=== PATIENT | male | born 1995 | race Caucasian/White ===

== ENCOUNTER 2023-11-21 23:22 | Emergency (ER) | payer SELFPAY ==
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
[2023-11-21 23:37] VITALS: BP 144/97; PULSE 108; TEMP 36.2; O2SAT 96
--- NOTE | 2023-11-22 00:02 | NUR.NOTE ---
Pt placed on care management referral list to see Occupational Health to be seen for bodily fluids exposure to be seen as soon as possible.
[2023-11-22 00:21] LABS: ALT 39 U/L (16-63); AST 20 U/L (15-37); Albumin 4.8 g/dL (3.4-5.0); Alkaline Phosphatase 104 U/L (46-116); Bilirubin, Direct 0.2 mg/dL (0.0-0.2); Bilirubin, Total 0.8 mg/dL (0.2-1.0); Total Protein 8.1 g/dL (6.4-8.2)
[2023-11-23 08:21] LABS: HBs Antibody, Quant <3.1 mIU/mL (See Note); Hepatitis B Surface Ab Negative (See Note)
[2023-11-23 08:39] LABS: Hepatitis B Surface Ag Negative (Negative)
[2023-11-23 08:53] LABS: Hepatitis C Ab w Rflx HCV PCR Negative (Negative)
== END 2023-11-22 00:16 | disposition home or self-care (01) ==
PROVIDERS: Emergency Provider Physician Assistant
DX: Z77.21 Contact with and (suspected) exposure to potentially hazardous body fluids (principal); X58.XXXA Exposure to other specified factors, initial encounter; Y93.F9 Activity, other caregiving; Y92.230 Patient room in hospital as the place of occurrence of the external cause
CPT/HCPCS: 80076; 86706; 86803; 87340; 99283

== ENCOUNTER 2023-12-16 18:47 | Emergency (ER) | payer SELFPAY ==
[2023-12-16 18:52] VITALS: BP 159/95; PULSE 119; RESP 24; TEMP 36.8; O2SAT 96
--- NOTE | 2023-12-16 19:00 | DI.RAD_ITS ---
Exam(s) XR CHEST 2V PA LATERAL EXAM: XR CHEST 2V PA LATERAL CLINICAL HISTORY: cough, shortness of breath. TECHNIQUE: 2D digital imaging was performed. COMPARISON: No exams were available for comparison FINDINGS: 2 views: Heart size is normal. The mediastinum is not widened. Lungs are clear. No infiltrates nor pleural effusions. IMPRESSION: No acute pulmonary findings. DATA REPOSITORY: RADIATION DOSE DELIVERED:
[2023-12-16] MEDS: Normal Saline 1,000 ML 1000 ML IV (19:30)
[2023-12-16] MEDS: Acetaminophen 500 MG TAB 1000 MG PO (19:43)
[2023-12-16 19:44] LABS: COVID-19 PCR Negative (Negative); Influenza A PCR Negative (Negative); Influenza B PCR Negative (Negative); RSV PCR Negative (Negative); Source NASOPHARYNX
[2023-12-16 19:46] LABS: Abs Immature Grans 0.04 10^3/uL (0.0-0.06); Absolute Eosinophil Count 1.27 10^3/uL (0.0-0.7); Absolute Lymphocyte Count 2.38 10^3/uL (1.2-3.4); Basophils % 0.7 %; Eosinophils % 9.2 %; HCT 44.3 % (40.0-50.0); HGB 15.3 g/dL (13.5-17.5); Immature Grans % 0.3 %; Lymphocytes % 17.2 %; MCH 30.3 pg (27.0-33.0); MCHC 34.5 % (32.0-36.0); MCV 88 fL (80-95); MPV 9.2 fL (8.0-11.0); Monocytes % 5.4 %; Neutrophils % 67.2 %; Platelet Count 329 10^3/uL (130-400); RBC 5.05 10^6/uL (4.36-5.78); RDW 12.7 % (11.8-14.1); RDW-SD 40.6 fL; WBC 13.81 10^3/uL (4.4-10.8)
[2023-12-16 19:47] LABS: Absolute Monocyte Count 0.75 10^3/uL (0.1-0.8); Absolute Neutrophil Count 9.28 10^3/uL (1.2-6.7)
[2023-12-16 20:00] LABS: ALT 35 U/L (16-63); AST 13 U/L (15-37); Alkaline Phosphatase 109 U/L (46-116); Anion Gap 10.3 mmol/L (3-11); BUN 7 mg/dL (7-18); Bilirubin, Total 0.28 mg/dL (0.2-1.0); CO2 26.7 mmol/L (21.0-32.0); CREATININE 0.9 mg/dL (0.70-1.30); Calcium 8.8 mg/dL (8.5-10.1); Chloride 105 mmol/L (98-107); Estimated GFR 118.57 (mL/min/1.73m2); Glucose 100 mg/dL (74-106); Potassium 3.5 mmol/L (3.5-5.1); Sodium 142 mmol/L (136-145); Total Protein 7.6 g/dL (6.4-8.2)
[2023-12-16] MEDS: Inhaler, Assist Device 1 EACH MC (20:41)
[2023-12-16] MEDS: Albuterol HFA 8 GM 60 PUFF INH IH (20:41)
[2023-12-16 20:42] VITALS: BP 123/74; PULSE 86; RESP 16; O2SAT 98
[2023-12-16] MEDS: predniSONE 20 MG TAB 40 MG PO (21:08)
[2023-12-16] MEDS: Doxycycline Hyclate 100 MG, 2 CAPS/BTL PO (21:08)
[2023-12-16 21:09] VITALS: BP 124/70; PULSE 85; RESP 16; O2SAT 97
--- NOTE | 2023-12-16 21:39 | DI.VRAD_ITS ---
PROCEDURE INFORMATION: Exam: XR Chest Exam date and time: 12/16/2023 7:50 PM Age: 28 years old Clinical indication: Cough and shortness of breath; Patient HX: SOB and cough TECHNIQUE: Imaging protocol: Radiologic exam of the chest. Views: 2 views. COMPARISON: No relevant prior studies available. FINDINGS: Lungs: No pulmonary consolidation is seen. Pleural spaces: No pleural effusion or pneumothorax is demonstrated. Heart/Mediastinum: The heart appears normal in size. Bones/joints: The visualized bony structures appear intact. IMPRESSION: No active disease is seen in the chest. Dictated and Authenticated by: Warren Kimbrough MD. Ordering:NAEL David MD
--- NOTE | 2023-12-17 10:10 | NUR.NOTE ---
Nursing Note: Received call from pt that prescriptions were not received by [facility] in [place], [place]. DC paperwork reviewed and it appears they were not electronically sent anywhere. Verbal orders called into [facility] pt updated to call Pharmacy in 30 min for an estimated picking tech time.
--- NOTE | 2023-12-17 20:03 | ED.GENADUL_ITS ---
Discharge Plan Disposition Patient Disposition: Home Condition: Stable Discharge Details Clinical Impression: Bronchitis Primary Care Provider: Unknown,Unknown ED Provider: Joann Melo Home Meds and New Rx's Prescriptions: New doxycycline hyclate 100 mg capsule 100 mg PO BID Qty: 20 0RF prednisone 20 mg tablet 40 mg PO DAILY Qty: 8 0RF Continued albuterol 90 mcg/actuation aerosol 90 mcg inhalation .every 4 hr PRN Rx Instructions: inhaled EVERY 4 HR PRN; Discharge Instructions Instructions: Acute bronchitis Additional Instructions: Take the prednisone as prescribed Antibiotics until completed Yogurt daily while on antibiotics Albuterol 2 puffs every 4-6 hours Increased fluids Return earlier should you have increased blood in your sputum, uncontrolled fevers, worsening shortness of breath, or should any concerns arise Stand Alone Forms: Work Release Discharge Data Discharge Date/Time-TO BE ENTERED AT DEPARTURE: 12/16/23 21:10 HPI General Date/Time Provider Initiated Documentation: 12/16/23 18:50 . HPI Narrative: This 28-year-old male presents with report of cough for the past 3 days subje ctive fever and chills this shortness of breath, sore throat and intermittent small hemoptysis. Denies any known sick contacts evidence of discomfort. Denies any stiff neck difficulty swallowing. Denies history of asthma or COPD but does vape daily. Denies any calf pain or swelling, recent flights, surgeries, long drives. Denies any nausea or vomiting. Denies any rashes or lesions. Denies any tick bites. Related Data Home Medications Medication Instructions Recorded Confirmed albuterol 90 mcg/actuation aerosol 90 mcg inhalation .every 4 hr PRN 12/16/23 12/16/23 inhaler doxycycline hyclate 100 mg capsule 100 mg PO BID #20 caps 12/16/23 prednisone 20 mg tablet 40 mg (2 x 20 mg) PO DAILY #8 tabs 12/16/23 Previous Rx's Medication Instructions Recorded doxycycline hyclate 100 mg capsule 100 mg PO BID #20 caps 12/16/23 prednisone 20 mg tablet 40 mg (2 x 20 mg) PO DAILY #8 tabs 12/16/23 General Stated Complaint: RespSymp ANABELLE: 3 Exam Narrative Exam Narrative: Well-appearing 28-year-old gentleman, tachycardic, mildly diaphoretic, no scleral icterus, uvula midline, oropharynx patent, maintaining secretions, scant scattered wheezes, sinus tachycardia, no abdominal tenderness, pallor, alert and oriented x 4, no peripheral edema or calf tenderness, distal sensation intact Course Vital Signs Vital signs: Vital Signs Temperature 36.8 C 12/16/23 18:52 Pulse 119 H 12/16/23 18:52 Respiratory Rate 24 12/16/23 18:52 Blood Pressure 159/95 H 12/16/23 18:52 Pulse Oximetry 96 12/16/23 18:52 Temperature 36.8 C 12/16/23 18:52 Pulse 85 12/16/23 21:09 Respiratory Rate 16 12/16/23 21:09 Respiratory Effort Normal, Non-Labored 12/16/23 19:37 Respiratory Depth Normal 12/16/23 19:37 Blood Pressure 124/70 12/16/23 21:09 Pulse Oximetry 97 12/16/23 21:09 Oxygen Delivery Method Room Air 12/16/23 20:42 Oxygen Flow Rate 0 12/16/23 20:42 Lab/Test Results Lab/Test Results: Laboratory Tests Range/Units 12/16/23 12/16/23 18:53 19:30 WBC (4.4-10.8) 10^3/uL 13.81 H RBC (4.36-5.78) 10^6/uL 5.05 Hgb (13.5-17.5) g/dL 15.3 Hct (40.0-50.0) % 44.3 MCV (80-95) fL 88 MCH (27.0-33.0) pg 30.3 MCHC (32.0-36.0) % 34.5 RDW (11.8-14.1) % 12.7 Plt Count (130-400) 10^3/uL 329 MPV (8.0-11.0) fL 9.2 Immature Gran % % 0.3 Neutrophils % % 67.2 Lymphocytes % % 17.2 Monocytes % % 5.4 Eosinophils % % 9.2 Basophils % % 0.7 Nucleated RBC % (0.0-0.3) % 0.0 Absolute Neutrophils (1.2-6.7) 10^3/uL 9.28 H Absolute Lymphocytes (1.2-3.4) 10^3/uL 2.38 Absolute Monocytes (0.1-0.8) 10^3/uL 0.75 Absolute Eosinophils (0.0-0.7) 10^3/uL 1.27 H Absolute Basophils (0.0-0.2) 10^3/uL 0.10 Sodium (136-145) mmol/L 142 Potassium (3.5-5.1) mmol/L 3.5 Chloride (98-107) mmol/L 105 Carbon Dioxide (21.0-32.0) mmol/L 26.7 Anion Gap (3-11) mmol/L 10.3 BUN (7-18) mg/dL 7 Creatinine (0.70-1.30) mg/dL 0.9 Est GFR (CKD-EPI 2020) (mL/min/1.73m2) 118.57 Glucose (74-106) mg/dL 100 Calcium (8.5-10.1) mg/dL 8.8 Total Bilirubin (0.2-1.0) mg/dL 0.28 AST (15-37) U/L 13 L ALT (16-63) U/L 35 Alkaline Phosphatase (46-116) U/L 109 Total Protein (6.4-8.2) g/dL 7.6 Albumin (3.4-5.0) g/dL 4.0 COVID-19 Source NASOPHARYNX SARS-CoV-2 (PCR) (Negative) Negative Influenza Type A (PCR) (Negative) Negative Influenza Type B (PCR) (Negative) Negative RSV (PCR) (Negative) Negative Medical Decision Making Alert and oriented 28-year-old male, no significant distress, chest x-ray without obvious infiltrate tachycardia and leukocytosis. Will initiate antibiotics. Doxycycline to treat for bronchitis versus pneumonia in the presence of a tobacco user with leukocytosis. Given albuterol inha, prednisone, doxycycline. Follow-up in 48 hours recommended. Encourage smoking cessation. Low clinical suspicion for PE, tachycardia resolved with fluids and no history of coagulopathy or risk factors aside from tachycardia but no hypoxia only mild tachypnea presents with respiratory symptoms.. COVID, flu, RSV negative. Quality:[facility] Health Related Social Needs: No Data to Display PFSH All Active Problems (Updated 12/16/23 @ 20:48 by KOBI Agosto) Bronchitis (Acute) History of exposure to blood or body fluid (Acute) Social History Smoking/Tobacco Use Status: Current every day Tobacco Type: e-cigarettes Smoking risk assessment performed?: Yes Alcohol Intake: current Alcohol Intake frequency: a few times a month Alcohol type: beer and hard liquor Drug use: Never Substance use type: does not use Housing: house Do you feel safe at home: Yes Do you feel safe in your relationship?: Yes
== END 2023-12-16 21:10 | disposition home or self-care (01) ==
PROVIDERS: Emergency Provider Physician Assistant
DX: J40 Bronchitis, not specified as acute or chronic (principal)
CPT/HCPCS: 36415; 80053; 87637; 96360; 99284; 71046; 85025; J7512

== ENCOUNTER 2024-04-09 22:52 | Emergency (ER) | payer SELFPAY ==
[2024-04-09] VITALS (50 sets, daily range): BP systolic 132–141; BP diastolic 68–89; PULSE 65–82; RESP 9–26; TEMP 36.7; O2SAT 92–98
--- NOTE | 2024-04-09 22:45 | RT.EKG_ITS ---
APPROVED REPORT Exam: Resting ECG Reason for Exam: chest heaviness Patient Location: E HR:74 bpm ECG Measurements Heart Rate 74 AXIS NE 163 P 21 QRSd 86 QRS -9 QT 367 T 1 QTc 406 Conclusion Sinus rhythm...normal P axis, V-rate 60- [address] segment or T wave abnormalities to suggest occlusive MN
--- NOTE | 2024-04-09 23:15 | DI.RAD_ITS ---
Exam(s) XR CHEST 2V PA LATERAL EXAM: XR CHEST 2V PA LATERAL CLINICAL HISTORY: chest pain. TECHNIQUE: 2D digital imaging was performed. COMPARISON: CR,XR XR CHEST 2V PA LATERAL from 12/16/2023 FINDINGS: 2 views: Heart size is normal. The mediastinum is not widened. Lungs are clear. No infiltrates nor pleural effusions. IMPRESSION: No acute pulmonary findings. DATA REPOSITORY: RADIATION DOSE DELIVERED:
--- NOTE | 2024-04-09 23:15 | DI.CT_ITS ---
Exam(s) CT ABDOMEN PELVIS W EXAM: CT ABDOMEN PELVIS W CLINICAL HISTORY: TTP diffusely, worst RLQ (prior appendectomy). TECHNIQUE: Imaging Protocol: Axial computed tomography images with coronal and sagittal reformatted images were created and reviewed CONTRAST MATERIAL: Intravenous: Omnipaque-350 100cc Oral: None COMPARISON: No exams were available for comparison FINDINGS: VISUALIZED LUNG BASES: No nodules nor pleural effusions evident. ABDOMEN: There is no ascites. LIVER: There are no focal hepatic lesions evident. No dilated intrahepatic ducts. GALLBLADDER/BILIARY: No obvious gallbladder pathology. CBD is not dilated. PANCREAS: No evidence of pancreatic mass nor dilatation of the pancreatic duct. SPLEEN: Spleen is not enlarged. No obvious intrasplenic lesions. Splenic and portal veins are paten t. ADRENALS: There are no significant adrenal masses. KIDNEYS:No cysts evident. No solid renal masses. No calculi nor hydronephrosis.. ABDOMINAL AORTA: Abdominal aorta is not enlarged. LYMPH NODES:There is no retroperitoneal nor paraaortic adenopathy. ABDOMINAL WALL: No evidence of significant anterior abdominal wall hernia. There is a small fat only containing left inguinal hernia. GI: There is no evidence of bowel obstruction, free air, nor abscess. PELVIS: GI: Appendix is surgically absent.No significant sigmoid diverticular disease. LYMPH NODES: There is no intrapelvic nor inguinal adenopathy. REPRODUCTIVE: Prostate size normal. Seminal vesicles unremarkable. URINARY BLADDER: No calculi nor obvious masses evident OSSEOUS: No fractures and no significant osseous lesions. IMPRESSION: 1. There is a small fat only containing left inguinal hernia. Does not contain bowel loops. No britany l obstruction. 2. No significant acute findings in the abdomen and pelvis. RADIATION DOSE DELIVERED: 719.97mGy.cm Total DLP DATA REPOSITORY: All CT scans at this facility are submitted to the National Radiology Data Registry (NRDR) Dose Index Registry (DIR) with the [employer] (A[employer]). RADIATION OPTIMIZATION: All CT scans at this facility use at least one of these dose optimization te chniques: automated exposure control; mA and/or kV adjustment per patient size (includes targeted exa ms where dose is matched to clinical indication); or iterative reconstruction.
[2024-04-09 23:35] LABS: Abs Immature Grans 0.02 10^3/uL (0.0-0.06); Absolute Basophil Count 0.06 10^3/uL (0.0-0.2); Absolute Eosinophil Count 0.53 10^3/uL (0.0-0.7); Absolute Lymphocyte Count 2.97 10^3/uL (1.2-3.4); Absolute Monocyte Count 0.43 10^3/uL (0.1-0.8); Absolute Neutrophil Count 5.48 10^3/uL (1.2-6.7); Basophils % 0.6 %; Eosinophils % 5.6 %; HCT 43.7 % (40.0-50.0); HGB 15.1 g/dL (13.5-17.5); Immature Grans % 0.2 %; Lymphocytes % 31.3 %; MCH 30.6 pg (27.0-33.0); MCHC 34.6 % (32.0-36.0); MCV 89 fL (80-95); MPV 8.9 fL (8.0-11.0); Monocytes % 4.5 %; Neutrophils % 57.8 %; Platelet Count 320 10^3/uL (130-400); RBC 4.94 10^6/uL (4.36-5.78); RDW 12.4 % (11.8-14.1); RDW-SD 40.3 fL; WBC 9.49 10^3/uL (4.4-10.8)
[2024-04-09] MEDS: Acetaminophen 500 MG TAB 1000 MG PO (23:39)
[2024-04-09] MEDS: Ondansetron 4 MG/2 ML VIAL IVP (23:40)
--- NOTE | 2024-04-09 23:47 | ED.GENADUL_ITS ---
Discharge Plan Disposition Patient Disposition: Home Condition: Good Discharge Details Clinical Impression: Vomiting, Chest pain Primary Care Provider: Unknown,Unknown ED Provider: Norma Sanchez Home Meds and New Rx's Prescriptions: New ondansetron 4 mg tablet,disintegrating 4 mg PO Q8H PRNQty: 10 0RF Continued albuterol 90 mcg/actuation aerosol 90 mcg inhalation .every 4 hr PRN Rx Instructions: inhaled EVERY 4 HR PRN; Discharge Instructions Instructions: Chest Pain, Adult ED, Nausea and vomiting in adults Additional Instructions: Ondansetron up to every 8 hours as needed for vomiting. Call your primary care doctor today to schedule an appointment for within the next 48 hours to follow up on your visit here. Return to the emergency department for new or worsening symptoms including inability to keep down fluids, new/different/worse chest or abdominal pain, difficultly breathing, feeling like you are going to pass out, or if you have any other concerns. Stand Alone Forms: Work Release HPI General Mode of arrival: ambulatory . Date/Time Provider Initiated Documentation: 04/09/24 22:55 . Limitations to Documentation: no limitations . Information obtained by: patient . HPI Narrative: 28yo M with hx asthma presenting with three days of N/V and 3 hours of dull substernal chest pain. Has not been able to keep much down over the past three days. Nonbloody nonbilious. Associated nonbloody diarrhea, 2/day. Has felt lightheaded today. No syncope. No shortness of breath. No LE edema. No prior cardiac history, no family hx of early cardiac disease or sudden unexpected . No recent surgery, immbolization, or travel; no hx of blood clots. Pain is dull, non radiating, mild, with no alleviating or aggravating factors. Also has mild diffuse abdominal pain. No dysuria, hematuria, or testicular pain. Otherwise in his usual state of health with no fevers, rash, cough, numbness, weakness, or other concerns. Related Data Home Medications ?Medication ?Instructions ?Recorded ?Confirmed albuterol 90 mcg/actuation aerosol 90 mcg inhalation .every 4 hr PRN 12/16/23 04/09/24 inhaler ondansetron 4 mg disintegrating 4 mg PO Q8H PRN #10 tabs 04/10/24 tablet Previous Rx's ?Medication ?Instructions ?Recorded ondansetron 4 mg disintegrating 4 mg PO Q8H PRN #10 tabs 04/10/24 tablet Allergies Allergy/AdvReac Type Severity Reaction Status Date / Time peanut Allergy Unknown Verified 04/09/24 22:56 General Stated Complaint: Chest Pain ANABELLE: 3 Review of Systems Narrative: see HPI Exam Narrative Exam Narrative: General: Alert, well appearing, well nourished, in no acute distress. Head: Normocephalic, atraumatic Neck: Trachea midline, ?Neck supple. ENT: ?MMM.? No oropharygeal lesions or exudate. Cardiac: ?RRR, no murmurs appreciated Resp: No respiratory distress. CTAB. Abd: ?Soft, non-distended, diffusely mildly TTP worst in RLQ with no rebound or guarding. : ?No suprapubic tenderness. Extremities: ?No deformities.? No peripheral edema. Neurologic: GCS 15. ? Moves all extremities freely against gravity Course Vital Signs Vital signs: Vital Signs Temperature 36.7 C 04/09/24 22:57 Pulse 78 04/09/24 22:57 Respiratory Rate 16 04/09/24 22:57 Blood Pressure 141/89 H 04/09/24 22:57 Pulse Oximetry 96 04/09/24 22:57 Temperature 36.7 C 04/09/24 22:57 Temperature Source Temporal Artery Scan 04/09/24 22:57 Pulse 78 04/09/24 22:57 Respiratory Rate 16 04/09/24 23:00 Respiratory Effort Normal 04/09/24 23:00 Respiratory Depth Normal 04/09/24 23:00 Blood Pressure 141/89 H 04/09/24 22:57 Blood Pressure Position Sitting 04/09/24 22:57 Pulse Oximetry 96 04/09/24 22:57 Oxygen Delivery Method Room Air 04/09/24 22:57 Oxygen Flow Rate 0 04/09/24 22:57 End Tidal Co2 0 04/09/24 22:57 Lab/Test Results Lab/Test Results: Laboratory Tests Range/Units 04/09/24 23:30 WBC (4.4-10.8) 10^3/uL 9.49 RBC (4.36-5.78) 10^6/uL 4.94 Hgb (13.5-17.5) g/dL 15.1 Hct (40.0-50.0) % 43.7 MCV (80-95) fL 89 MCH (27.0-33.0) pg 30.6 MCHC (32.0-36.0) % 34.6 RDW (11.8-14.1) % 12.4 Plt Count (130-400) 10^3/uL 320 MPV (8.0-11.0) fL 8.9 Immature Gran % % 0.2 Neutrophils % % 57.8 Lymphocytes % % 31.3 Monocytes % % 4.5 Eosinophils % % 5.6 Basophils % % 0.6 Nucleated RBC % (0.0-0.3) % 0.0 Absolute Neutrophils (1.2-6.7) 10^3/uL 5.48 Absolute Lymphocytes (1.2-3.4) 10^3/uL 2.97 Absolute Monocytes (0.1-0.8) 10^3/uL 0.43 Absolute Eosinophils (0.0-0.7) 10^3/uL 0.53 Absolute Basophils (0.0-0.2) 10^3/uL 0.06 Medical Decision Making 28yo M with hx asthma presenting with three days of N/V and 3 hours of dull substernal chest pain. Vital signs reassuring on arrival, mild diffuse abd tenderness on exam. EKG NSR, appropriate intervals, no ST segment or T wave abnormalities to suggest occlusive DC. May be gastroenteritits +/- reflux; will treat initially with zofran, GI cocktail, and evalaute for life threatening causes. PERC negative; would not persue pulmonary embolism with dimer/CT imaging. Labs reviewed as below, CBC reassuring with no leukocytosis or anemia, CMP with no actionable abnormalities, initial troponin normal, BNP normal, lipase normal (unlikely pancreatitis). CXR independently reviewed; no focal pneumonia or pneumothorax on my view, radiology read below. CT independently reviewed; no bowel obstruction or free fluid on my view, radiology read below. Repeat troponin unchanged. HEART score 0, low risk; would not continue to trend troponin or admit for observation. On reassessment he reports nausea has improved. PO challenged and tolerated well. Patient requesting discharge home which is reasonable. Discharged to followup with PCP with short course of zofran; discharge instructions and return precautions were reviewed with patient who verbalized understanding. All questions were answered and he is in full agreement with the plan. Imaging Data Radiologic Study: Imaging: CT Scan Radiologist's impression: IMPRESSION: No acute intra-abdominal process. Radiologic Study #2: Imaging: X-Ray Radiologist's impression: IMPRESSION: No acute intra-abdominal process. Lab Data Lab results reviewed: Yes I reviewed the patient's lab results. Labs: Laboratory Tests Range/Units 04/09/24 04/10/24 23:30 00:45 WBC (4.4-10.8) 10^3/uL 9.49 RBC (4.36-5.78) 10^6/uL 4.94 Hgb (13.5-17.5) g/dL 15.1 Hct (40.0-50.0) % 43.7 MCV (80-95) fL 89 MCH (27.0-33.0) pg 30.6 MCHC (32.0-36.0) % 34.6 RDW (11.8-14.1) % 12.4 Plt Count (130-400) 10^3/uL 320 MPV (8.0-11.0) fL 8.9 Immature Gran % % 0.2 Neutrophils % % 57.8 Lymphocytes % % 31.3 Monocytes % % 4.5 Eosinophils % % 5.6 Basophils % % 0.6 Nucleated RBC % (0.0-0.3) % 0.0 Absolute Neutrophils (1.2-6.7) 10^3/uL 5.48 Absolute Lymphocytes (1.2-3.4) 10^3/uL 2.97 Absolute Monocytes (0.1-0.8) 10^3/uL 0.43 Absolute Eosinophils (0.0-0.7) 10^3/uL 0.53 Absolute Basophils (0.0-0.2) 10^3/uL 0.06 Sodium (136-145) mmol/L 144 Potassium (3.5-5.1) mmol/L 4.0 Chloride (98-107) mmol/L 108 H Carbon Dioxide (21.0-32.0) mmol/L 28.4 Anion Gap (3-11) mmol/L 7.6 BUN (7-18) mg/dL 11 Creatinine (0.70-1.30) mg/dL 0.9 Est GFR (CKD-EPI 2020) (mL/min/1.73m2) 118.57 Glucose (74-106) mg/dL 112 H Calcium (8.5-10.1) mg/dL 8.8 Total Bilirubin (0.2-1.0) mg/dL 0.36 AST (15-37) U/L 16 ALT (16-63) U/L 36 Alkaline Phosphatase (46-116) U/L 97 Troponin I (<or=76) ng/L 5 5 NT-Pro-B Natriuret Pep (<300) pg/mL 13 Total Protein (6.4-8.2) g/dL 7.1 Albumin (3.4-5.0) g/dL 3.8 Lipase (16-77) U/L 34 Quality:SDOH Health Related Social Needs: No Data to Display PFSH All Active Problems (Updated 04/10/24 @ 01:36 by Norma Sanchez MD) Chest pain (Acute) Vomiting (Acute) Social History Smoking/Tobacco Use Status: Current every day Tobacco Type: e-cigarettes Smoking risk assessment performed?: Yes Alcohol Intake: current Alcohol Intake frequency: a few times a month Alcohol type: beer and hard liquor Drug use: Never Substance use type: does not use Housing: house Do you feel safe at home: Yes Do you feel safe in your relationship?: Yes
[2024-04-09] MEDS: Normal Saline - Diluent 50 ML VIAL IJ (23:57)
[2024-04-09] MEDS: Omnipaque 350 MG/ML 100 ML BTL IJ (23:57)
[2024-04-09 23:58] LABS: ALT 36 U/L (16-63); AST 16 U/L (15-37); Albumin 3.8 g/dL (3.4-5.0); Alkaline Phosphatase 97 U/L (46-116); Anion Gap 7.6 mmol/L (3-11); BUN 11 mg/dL (7-18); Bilirubin, Total 0.36 mg/dL (0.2-1.0); CO2 28.4 mmol/L (21.0-32.0); CREATININE 0.9 mg/dL (0.70-1.30); Calcium 8.8 mg/dL (8.5-10.1); Chloride 108 mmol/L (98-107); Estimated GFR 118.57 (mL/min/1.73m2); Glucose 112 mg/dL (74-106); Lipase 34 U/L (16-77); NT-proBNP 13 pg/mL (<300); Sodium 144 mmol/L (136-145); Total Protein 7.1 g/dL (6.4-8.2); Troponin I 5 ng/L (<or=76)
[2024-04-10 01:07] LABS: Troponin I 5 ng/L (<or=76)
--- NOTE | 2024-04-10 01:15 | DI.VRAD_ITS ---
PROCEDURE INFORMATION: Exam: CT Abdomen And Pelvis With Contrast Exam date and time: 04/09/2024 11:55 PM Age: 28 years old Clinical indication: Pain; Other: Ttp diffusely, worst rlq (prior appendectomy); Additional info: Ttp diffusely, worst rlq (prior appendectomy) TECHNIQUE: Imaging protocol: Computed tomography of the abdomen and pelvis with contrast. Contrast material: OMNI 350; Contrast volume: 100 ml; Contrast route: INTRAVENOUS (IV); COMPARISON: CR XR CHEST 2V PA LATERAL 04/09/2024 11:53 PM FINDINGS: Liver: Normal. No mass. Gallbladder and biliary ducts: Normal. No calcified stones. No ductal dilation. Pancreas: Normal. No ductal dilation. Spleen: Normal. No splenomegaly. Adrenal glands: Normal. No mass. Kidneys and ureters: Normal. No hydronephrosis. Stomach and bowel: Unremarkable. No obstruction. No mucosal thickening. Appendix: Post appendectomy. Intraperitoneal space: Unremarkable. No free air. No significant fluid collection. Vasculature: Unremarkable. No abdominal aortic aneurysm. Lymph nodes: Unremarkable. No enlarged lymph nodes. Urinary bladder: Unremarkable as visualized. Reproductive: Unremarkable as visualized. Bones/joints: Unremarkable. No acute fracture. Soft tissues: Fat containing left inguinal hernia. IMPRESSION: No acute intra-abdominal process. Dictated and Authenticated by: Robin Justice MD. Ordering:JAMAL Green MD
--- NOTE | 2024-04-10 01:15 | DI.VRAD_ITS ---
PROCEDURE INFORMATION: Exam: XR Chest Exam date and time: 04/09/2024 11:53 PM Age: 28 years old Clinical indication: Chest wall pain TECHNIQUE: Imaging protocol: Radiologic exam of the chest. Views: 2 views. COMPARISON: CR XR CHEST 2V PA LATERAL 12/16/2023 7:50 PM FINDINGS: Lungs: Unremarkable. No consolidation. Pleural spaces: Unremarkable. No pleural effusion. No pneumothorax. Heart/Mediastinum: Unremarkable. No cardiomegaly. Bones/joints: Unremarkable. IMPRESSION: No acute cardiopulmonary process. Dictated and Authenticated by: Robin Justice MD. Ordering:JAMAL Green MD
== END 2024-04-10 01:46 | disposition home or self-care (01) ==
LOC: ER 04-10 01:53
PROVIDERS: Emergency Provider Student in an Organized Health Care Education/Training Program
DX: R11.2 Nausea with vomiting, unspecified (principal); R07.9 Chest pain, unspecified; F17.290 Nicotine dependence, other tobacco product, uncomplicated
CPT/HCPCS: 80053; 83690; 93005; 96374; 99285; 71046; 74177; 83880; 84484; 85025; 93010; 99284; J2405; J3490

== ENCOUNTER 2024-04-17 01:58 | Emergency (ER) | payer OTHER, SELFPAY ==
--- NOTE | 2024-04-17 02:00 | DI.RAD_ITS ---
Exam(s) XR SHOULDER RT COMPLETE 2+V EXAM: XR SHOULDER RT COMPLETE 2+V CLINICAL HISTORY: trauma/injury. TECHNIQUE: 2D digital imaging was performed. Five views. COMPARISON: No exams were available for comparison FINDINGS: BONES: No acute fracture is present. No bony destructive lesion is seen. JOINTS: No dislocation present. SOFT TISSUE: Normal. IMPRESSION: Unremarkable radiographs of the right shoulder. DATA REPOSITORY: RADIATION DOSE DELIVERED:
[2024-04-17 02:01] VITALS: BP 162/83; PULSE 109; RESP 19; TEMP 37.1; O2SAT 98
--- NOTE | 2024-04-17 02:10 | W.ED.GENAD ---
Discharge Plan Disposition Patient Disposition: Home Condition: Good Discharge Details Clinical Impression: Right shoulder injury Primary Care Provider: Unknown,Unknown ED Provider: Joe Sandhu and New Rx's Prescriptions: No Action albuterol 90 mcg/actuation aerosol 90 mcg inhalation .every 4 hr PRN Rx Instructions: inhaled EVERY 4 HR PRN; Discharge Instructions Instructions: Shoulder Sprain ED Additional Instructions: You were seen after an injury to your right shoulder. This potentially may be related to rotator cuff. X-rays show no evidence of fracture or dislocation. You will need to follow-up with occupational health. Ice on and off over the next few days. Ibuprofen or acetaminophen as needed for pain. Limit use of right upper extremity until follow-up with occupational health. Return to ED for any numbness or weakness of the arm, shortness of breath, other concerns. Stand Alone Forms: Work Release Referrals: Occupational Medicine [Provider Group] [facility] General Mode of arrival: ambulatory. Date/Time Provider Initiated Documentation: 04/17/24 02:00. Limitations to Documentation: no limitations. Information obtained by: patient and RN notes reviewed. 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 He is not sure exactly what happened but is having right shoulder pain, difficulty raising his arm. Denies any chest pain or shortness of breath. Denies any left arm or bilateral leg injury. Related Data Home Medications ?Medication ?Instructions ?Recorded ?Confirmed albuterol 90 mcg/actuation aerosol 90 mcg inhalation .every 4 hr PRN 12/16/23 04/17/24 inhaler Allergies Allergy/AdvReac Type Severity Reaction Status Date / Time peanut Allergy Unknown Verified 04/17/24 02:01 General Stated Complaint: Orthopedic ANABELLE: 3 Review of Systems Narrative: Per HPI Exam Narrative Exam Narrative: Const: WDWN male in NAD. VS per triage. HEENT: NC/AT. Normal facial exam. Neck: Supple. Trachea midline. Lungs: Normal respiratory effort. Cor: RRR. Good radial pulses. Neuro: A+O x 3. Normal speech, mentation, gait. Cranial nerves II - XII grossly intact. No gross motor or sensory deficit. Ext: Decreased active and passive range of motion at right shoulder due to pain. Specifically, difficult to raise his arm up. He is neurovascularly intact distally. Left upper extremity normal. Course Vital Signs Vital signs: Vital Signs Temperature 98.8 F 04/17/24 02:01 Pulse 109 H 04/17/24 02:01 Respiratory Rate 19 04/17/24 02:01 Blood Pressure 162/83 H 04/17/24 02:01 Pulse Oximetry 98 04/17/24 02:01 Temperature 98.8 F 04/17/24 02:01 Temperature Source Temporal Artery Scan 04/17/24 02:01 Pulse 109 H 04/17/24 02:01 Respiratory Rate 19 04/17/24 02:01 Respiratory Effort Normal, Non-Labored 04/17/24 02:04 Blood Pressure 162/83 H 04/17/24 02:01 Blood Pressure Position Sitting 04/17/24 02:01 Pulse Oximetry 98 04/17/24 02:01 Oxygen Delivery Method Room Air 04/17/24 02:01 Oxygen Flow Rate 0 04/17/24 02:01 Pain Level 6 04/17/24 02:01 Medical Decision Making 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 Likely muscular and potentially rotator cuff in nature. He is neurovascularly intact distally. Will obtain x-ray and provide ibuprofen, ice. Right shoulder x-ray negative for fracture/dislocation. Patient will need follow-up with occupational health. Limited use of right arm until follow-up given concern for possible rotator cuff injury. Ice on and off. Ibuprofen or acetaminophen for pain. Return precautions provided. Imaging Data Radiologic Study: Attestation: I personally reviewed and interpreted this imaging study as follows: Imaging: X-Ray My impression: Right shoulder x-ray with no acute fracture or dislocation. PFSH All Active Problems (Updated 04/17/24 @ 02:41 by Joe Sandhu MD) Right shoulder injury (Acute) Medical History No significant past medical history Surgical History No significant past surgical history Social History Smoking/Tobacco Use Status: Current every day Tobacco Type: e-cigarettes Smoking risk assessment performed?: Yes Alcohol Intake: current Alcohol Intake frequency: a few times a month Alcohol type: beer and hard liquor Drug use: Never Substance use type: does not use Housing: house Do you feel safe at home: Yes Do you feel safe in your relationship?: Yes
[2024-04-17] MEDS: Ibuprofen 600 MG TAB PO (02:19)
--- NOTE | 2024-04-17 02:52 | DI.VRAD_ITS ---
PROCEDURE INFORMATION: Exam: XR Right Shoulder Exam date and time: 04/17/2024 2:30 AM Age: 28 years old Clinical indication: Injury or trauma; Other: Trauma/injury; Blunt trauma (contusions or hematomas); Shoulder; Right TECHNIQUE: Imaging protocol: Radiologic exam of the right shoulder. Views: 2 or more views. COMPARISON: CR XR CHEST 2V PA LATERAL 04/09/2024 11:53 PM FINDINGS: Bones/joints: Normal. Soft tissues: Normal. IMPRESSION: Normal right shoulder. Dictated and Authenticated by: Timo Martinez MD. Ordering:ADRIANNE Diaz MD
== END 2024-04-17 03:01 | disposition home or self-care (01) ==
PROVIDERS: Emergency Provider Emergency Medicine
DX: M25.511 Pain in right shoulder (principal); X58.XXXA Exposure to other specified factors, initial encounter
CPT/HCPCS: 99283; 73030

== ENCOUNTER 2024-06-06 00:25 | Outpatient (CLI) | payer OTHER, SELFPAY ==
--- OUTSIDE RECORDS SUMMARY | 2024-06-06 00:27 | XMS_ITS | Encounter Summary ---
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 Name Role Phone Unavailable Primary Care Provider Unavailabl e Encounter Details Date Type Department Care Team (Late st Contact Info) Description 11/22/2023 Lab Requisition [facility] Pathology & Laboratory Medicine - [address] [address] Outr Resulting Lab, Provider Social History Tobacco Use Types Packs/Day Years Used Date Smoking Tobacco: Never Assessed Sex and Gender Information Value Date Recorded Sex Assigned at Not on file Legal Sex Male 1:33 EDT Gender Identity Not on file Sexual Orientation Not on file documented as of this encounter Plan of Treatment Not on file documented as of this encounter Procedures Procedure Name Priority Date/Time Associated Diagnosis Comments HOLD SST Today 11/21/2023 23:56 EDT HEPATITIS C AB W REFLEX TO HCV RNA BY PCR Today 11/21/2023 23:56 EDT HEPATITIS B SURFACE ANTIBODY Today 11/21/2023 23:56 EDT HEPATITIS B SURFACE ANTIGEN Today 11/21/2023 23:56 EDT documented in this encounter Results * HOLD SST (11/21/2023 23:56 EDT) Hold Hold 11/22/2023 18:01 EDT [facility] Blood VENOUS BLOOD / Unknown 11/21/2023 23:56 EDT 11/22/2023 16:55 EDT us Provider Outr Resulting Lab LAB INFO SERVICE AND SUPPORT & PHONE RESULT Final Result [facility] [address] [place] [address] * HEPATITIS B SURFACE ANTIBODY (11/21/2023 23:56 EDT) Pathologist [facility] Hep B Surface Ab, Quantitative <3.1 See Note mIU/mL 11/23/2023 8:17 EDT [facility] Comment: Reference Range for Hep B Surface Ab, Quant: Positive: >= 10.0 mIU/mL Negative: ??< 10.0 mIU/mL Patient is presumed to not be immune to infection with Hepatitis B Virus. Hep B Surface Ab, Qualitative Negative See Note 11/23/2023 8:17 EDT [facility] Comment: Reference Range for Hep B Surface Ab, Qual: Unvaccinated: ??Negative Vaccinated: ??Positive Blood VENOUS BLOOD / Unknown 11/21/2023 23:56 EDT 11/22/2023 16:54 EDT us Provider Outr Resulting Lab CHEMISTRY & BLOOD GA S ORDERABLES Final Result Performing Organization Address [facility]/ZIP Co de Phone Number [facility] [address] [place] [id number] * HEPATITIS B SURFACE ANTIGEN (11/21/2023 23:56 EDT) [facility] Hep B Surface Ag Negative Negative 11/23/2023 8:34 EDT [facility] Blood VENOUS BLOOD / Unknown 11/21/2023 23:56 EDT 11/22/2023 16:54 EDT us Provider Outr Resulting Lab CHEMISTRY & BLOOD GA S ORDERABLES Final Result Performing Organization Address City/[facility]/ZIP Co de Phone Number [facility] [address] [place] [address] * HEPATITIS C AB W REFLEX TO HCV RNA BY PCR (11/21/2023 23:56 EDT) [facility] Hep C Antibody Negative Negative 11/23/2023 8:47 EDT [facility] Blood VENOUS BLOOD / Unknown 11/21/2023 23:56 EDT 11/22/2023 16:54 EDT us Provider Outr Resulting Lab CHEMISTRY & BLOOD GA S ORDERABLES Final Result [facility] [address] [place] [address] documented in this encounter Visit Diagnoses Not on filedocumented in this encounter
--- OUTSIDE RECORDS SUMMARY | 2024-06-06 00:27 | XMS_ITS | Referral Summary ---
Author Organization [facility] Address [address] [place] [address] Care Team Providers Care [employer] Membership Advisors Name Role Phone Unavailable Primary Care Provider Unavailabl e Social History Tobacco Use Types Packs/Day Years Used Date Smoking Tobacco: Never Assessed Sex and Gender Information Value Date Recorded Sex Assigned at Not on file Legal Sex Male 1:33 EDT Gender Identity Not on file Sexual Orientation Not on file Plan of Treatment Not on file Procedures Procedure Name Priority Date/Time Associated Diagnosis Comments HEPATITIS C AB W REFLEX TO HCV RNA BY PCR Today 11/21/2023 23:56 EDT from Last 3 Months or Most Recently Relevant to Health Maintenance Results * HEPATITIS C AB W REFLEX TO HCV RNA BY PCR (11/21/2023 23:56 EDT) Hep C Antibody Negative Negative 11/23/2023 8:47 EDT [facility] Blood VENOUS BLOOD / Unknown 11/21/2023 23:56 EDT 11/22/2023 16:54 EDT us Provider Outr Resulting Lab CHEMISTRY & BLOOD GA S ORDERABLES Final Result [facility] [address] [place] [id number] from Last 3 Months or Most Recently Relevant to Health Maintenance
--- OUTSIDE RECORDS SUMMARY | 2024-06-06 00:27 | XMS_ITS | Clinical Summary ---
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 Name Role Phone Unavailable Primary Care Provider Unavailabl e Social History Tobacco Use Types Packs/Day Years Used Date Smoking Tobacco: Never Assessed Sex and Gender Information Value Date Recorded Sex Assigned at Not on file Legal Sex Male 1:33 EDT Gender Identity Not on file Sexual Orientation Not on file Plan of Treatment Health Maintenance Due Date Last Done Comments Hepatitis B Vaccine (1 of 3 - 19+ 3-dose series) 05/06 COVID-19 Vaccine ( season) 2024 Hepatitis C Screen Completed 11/21/2023 Procedures Procedure Name Priority Date/Time Associated Diagnosis Comments HEPATITIS C AB W REFLEX TO HCV RNA BY PCR Today 11/21/2023 23:56 EDT from Last 3 Months or Most Recently Relevant to Health Maintenance Results * HEPATITIS C AB W REFLEX TO HCV RNA BY PCR (11/21/2023 23:56 EDT) Hep C Antibody Negative Negative 11/23/2023 8:47 EDT [facility] Blood VENOUS BLOOD / Unknown 11/21/2023 23:56 EDT 11/22/2023 16:54 EDT us Provider Outr Resulting Lab CHEMISTRY & BLOOD GA S ORDERABLES Final Result [facility] [address] [place] [address] from Last 3 Months or Most Recently Relevant to Health Maintenance
--- NOTE | 2024-06-06 07:45 | DI.MRI_ITS ---
Exam(s) MR UPPER JOINT RT WO EXAM: MR UPPER JOINT RT WO CLINICAL HISTORY: Persistent pain, poor range of motion,ROTATOR CUFF IMPINGEMENT RT SHOULDER, TECHNIQUE: Multiplanar multisequence MRI of the shoulder was performed. COMPARISON: CR,XR XR SHOULDER RT COMPLETE 2+V from 04/17/2024 FINDINGS: MARROW:There is no evidence of fracture, Hill-Sachs deformity, nor ominous osseous lesions. GLENOHUMERAL JOINT: No joint effusion nor obvious loose intra-articular bodies. No chondral defects. No osteophytes. No degenerative subarticular cysts. ROTATOR CUFF MECHANISM: AC JOINT/ACROMIUM: There are minimal degenerative changes in the AC joint. No prominent osteophytes at this level. No enthesophytes evident at the level of the cortical clavicular ligament.. There is no evidence of os acromiale. Supraspinatus: There is very mild signal abnormality in the supraspinatus tendon.. There is a sliver of fluid in the subdeltoid bursa. There is no visible significant tear in the supraspinatus. There is also no muscle atrophy. Infraspinatus: There is a tiny focus of tendon insertional signal abnormality in the infraspinatus te ndon and there is a tiny subarticular cyst in the posterolateral humeral head at this level which mela sures 2 mm. This is tiny focus of tendon signal abnormality evident in all 3 planes and may represen t a tiny articular side partial thickness tear. It only measures approximately 1 mm. There is no mu scle atrophy. Teres Minor: Intact. No evidence of tear nor muscle atrophy. Subscapularis/anterior cuff: Intact. No abnormal signal at the level of the multipennate insertional fibers. No significant tear nor atrophy. BICEPS TENDON: Exhibits normal position within the intertubercular groove. No evidence of tear. LABRUM: There is no signal abnormality in superior labrum posterior to the biceps insertion site. Th e posterior labrum is also intact. There is no obvious tear in the anterior labrum nor obvious infer ior labral tear. No evidence of paralabral cysts. No evidence of avulsion of the anterior inferior labral ligamentous/capsular complex. No evidence of bony Bankart lesion. QUADRILATERAL SPACE: No evidence of mass in the region of the axillary nerve and dorsal circumflex hu meral vessels. Visualized triceps muscle at this level appears unremarkable. IMPRESSION: 1. There is a small tiny 1 mm focus of signal abnormality seen in all 3 planes within the insertional aspect of the infraspinatus which either represents a small focus tendinitis or tiny articular side partial thickness tear. This does not have the appearance of a full-thickness tear. There is a tiny degenerative subarticular cysts in the posterolateral humeral head immediately subjacent to this sma ll infraspinatus tendon finding. 2. Minimal tendon findings in the supraspinatus. No true tear. No retraction. No atrophy. 3. No evidence of tear in the anterior cuff-subscapularis. 4. No obvious labral tears nor biceps tendon tear. 5. No significant degenerative changes in the glenohumeral and AC joints. No joint effusions. No l oose intra-articular bodies. DATA REPOSITORY:
== END 2024-06-06 00:45 ==
PROVIDERS: Visit Provider Nurse Practitioner Family
DX: M75.41 Impingement syndrome of right shoulder (principal)
CPT/HCPCS: 73221

== ENCOUNTER 2024-07-24 17:23 | Emergency (ER) | payer SELFPAY ==
[2024-07-24 17:43] VITALS: BP 142/75; PULSE 83; RESP 22; TEMP 36.9; O2SAT 97
--- NOTE | 2024-07-24 17:45 | RT.EKG_ITS ---
APPROVED REPORT Exam: Resting ECG Reason for Exam: syncope Patient Location: E HR:79 bpm ECG Measurements Heart Rate 79 AXIS OH 159 P 34 QRSd 89 QRS 64 QT 367 T 56 QTc 422 Conclusion Sinus rhythm, rate 79 No interval abnormalities No STEMI No priors available for comparison
--- NOTE | 2024-07-24 18:00 | DI.CT_ITS ---
Exam(s) CT HEAD WO EXAM: CT HEAD WO CLINICAL HISTORY: fall, headstrike with LOC 0230 this morning. TECHNIQUE: Imaging Protocol: Axial computed tomography images with coronal and sagittal reformatted images were created and reviewed COMPARISON: No exams were available for comparison FINDINGS: Ventricles and Extra axial spaces: Normal in size and morphology for the patient's age. Hemorrhage: None. Cerebral parenchyma: Normal. Midline shift: None. Brainstem/Cerebellum: Normal. Calvarium: Normal. Visualized Paranasal sinuses/Mastoids: Clear. Soft Tissues: Unremarkable. IMPRESSION: No acute intracranial process. RADIATION DOSE DELIVERED: 967.18mGy.cm Total DLP DATA REPOSITORY: All CT scans at this facility are submitted to the National Radiology Data Registry (NRDR) Dose Index Registry (DIR) with the [employer] (ACR). RADIATION OPTIMIZATION: All CT scans at this facility use at least one of these dose optimization te chniques: automated exposure control; mA and/or kV adjustment per patient size (includes targeted exa ms where dose is matched to clinical indication); or iterative reconstruction.
--- NOTE | 2024-07-24 18:05 | ED.GENADUL_ITS ---
Discharge Plan Disposition Patient Disposition: Home Condition: Stable Discharge Details Clinical Impression: Concussion syndrome, Vasovagal syncope Primary Care Provider: None,None ED Provider: Michael Lin Home Meds and New Rx's Prescriptions: No Action cyclobenzaprine 5 mg tablet 5 mg PO QHS PRN (Reason: muscle spasm) Qty: 14 0RF albuterol 90 mcg/actuation aerosol 90 mcg inhalation .every 4 hr PRN Rx Instructions: inhaled EVERY 4 HR PRN; Discharge Instructions Instructions: Concussion, Adult ED, Fainting, Adult ED Additional Instructions: You were seen in the emergency department for your likely vasovagal syncope after taking a hot shower while sitting down and getting up and likely having a fainting episode hitting her head, there is no evidence of intracranial bleeding on your CT, you likely have a concussion. It may take 1 to 2 weeks for your concussion symptoms to go away, perform brain rest activities like limiting screen time, dim lighting, low sound environments, no excessive concentrate of activity. Take regular dose of Tylenol and ibuprofen as needed for pain. Please follow-up with your primary care provider regards to your syncope as you may want to receive a referral for baseline cardiac studies in the next 90 days. Please return to the emergency department for worsening symptoms despite treatment, any neurologic abnormality, chest pain, further episodes of syncope. Stand Alone Forms: Work Release Discharge Data Discharge Date/Time-TO BE ENTERED AT DEPARTURE: 07/24/24 19:14 HPI General Date/Time Provider Initiated Documentation: 07/24/24 17:29 . HPI Narrative: 29 year-old male presents to ED today by POV/ambulating with a chief complaint of fall this morning at 0230am, after taking a hot shower- where he was sitting down and stood up to get out of the shower and fell- woke up on the bathroom floor, recommended to seek ED evaluation from Urgent Care. Quality described as mild nausea after event but no significant headache at this time, no radiation to vomiting, numbness or tingling, visual changes, palpitations or chest pain, recent URI. Severity is described as mild. Palliating factors include nothing specific attempted. Provoking factors include nothing specific. Events leading up to the incident/Associated Symptoms: Patient denies any cardiac history. Patient not anticoagulated. Related Data Home Medications ?Medication ?Instructions ?Recorded ?Confirmed albuterol 90 mcg/actuation aerosol 90 mcg inhalation .every 4 hr PRN 12/16/23 07/24/24 inhaler cyclobenzaprine 5 mg tablet 5 mg PO QHS PRN muscle spasm #14 05/14/24 07/24/24 tabs Previous Rx's ?Medication ?Instructions ?Recorded cyclobenzaprine 5 mg tablet 5 mg PO QHS PRN muscle spasm #14 05/14/24 tabs Allergies Allergy/AdvReac Type Severity Reaction Status Date / Time peanut Allergy Unknown Verified 07/24/24 16:29 General Stated Complaint: HeadInjury ANABELLE: 3 Review of Systems All systems reviewed & are unremarkable except as noted in HPI and below Exam Narrative Exam Narrative: GENERAL APPEARANCE: Well-nourished, non-toxic, awake and alert, atraumatic, no acute distress. SKIN: Warm, pink, dry, intact, without rashes/lesions/ulcerations. HEAD: Normocephalic, atraumatic, normal hair distribution for gender/age. EYES: Normal conjunctiva, no exudates on lids/lashes. ENT: Nares patent, no circumoral cyanosis, no facial swelling NECK: Supple, trachea midline, painless cervical ROM. LUNGS/CHEST: Lungs CTA bilaterally, non-labored respirations, normal A/P diameter, symmetrical expansion, no chest wall deformity HEART (CV/PV): Regular rate and rhythm without murmur, no peripheral edema, no JVD. ABDOMEN: Soft, non-distended, no guarding. MSK: Normal ROM, no swelling/deformity to bilateral UEs or LEs, moving all extremities without weakness, no cyanosis, spine midline without tenderness, normal curvature. NEURO: Mental Status AAOx4 - alert to person, place, time, events No facial droop, no forehead involvement. Motor: No focal weakness - strength 5/5 in bilateral UEs and LEs, proximal and distal, symmetric. Sensory: sensation intact to light touch globally. Gait normal: patient ambulated without ataxia into ED room. PSYCH: euthymic, cooperative, pleasant, appropriate speech Course Vital Signs Vital signs: Vital Signs Temperature 36.9 C 07/24/24 17:43 Pulse 83 07/24/24 17:43 Respiratory Rate 22 07/24/24 17:43 Blood Pressure 142/75 H 07/24/24 17:43 Pulse Oximetry 97 07/24/24 17:43 Temperature 36.9 C 07/24/24 17:43 Temperature Source Tympanic 07/24/24 17:43 Pulse 83 07/24/24 17:43 Respiratory Rate 22 07/24/24 17:43 Blood Pressure 142/75 H 07/24/24 17:43 Blood Pressure Position Sitting 07/24/24 17:43 Pulse Oximetry 97 07/24/24 17:43 Oxygen Delivery Method Room Air 07/24/24 17:43 Oxygen Flow Rate 0 07/24/24 17:43 Pain Level 0 07/24/24 17:43 Medical Decision Making This dictation utilizes [id number] dictation software and may contain unedited grammatical errors. 29 year-old male presents to ED today by POV/ambulating with a chief complaint of fall this morning at 0230am, after taking a hot shower- where he was sitting down and stood up to get out of the shower and fell- woke up on the bathroom floor, recommended to seek ED evaluation from Urgent Care. Quality described as mild nausea after event but no significant headache at this time, no radiation to vomiting, numbness or tingling, visual changes, palpitations or chest pain, recent URI. Severity is described as mild. Palliating factors include nothing specific attempted. Provoking factors include nothing specific. Events leading up to the incident/Associated Symptoms: Patient denies any cardiac history. Patients' medical history: negative, otherwise healthy. Family and social history: noncontributory. Pertinent exam findings / vital signs include no scalp hematoma, neuro intact, benign cardiopulmonary exam, benign abdomen, nontoxic vitals. Differential / pathologies of concern include concussion syndrome, not ICH, ACS, vasovagal syncope. Diagnostic studies of: -CBC, CMP, troponin, magnesium, EKG, CT head without contrast. -CBC shows mild leukocytosis of 12.3 nonspecific -Troponin negative with reliable onset -Electrolytes within normal limits -Magnesium within normal limits -EKG shows sinus rhythm without ischemic changes -CT head negative Interventions of: -None. ED Course/Assessment/Plan: Patient presents nearly 16 to 17 hours after a fall getting out of a hot shower and woke up on the bathroom floor, he likely had a vasovagal syncope and fell and had a head strike with loss of consciousness, we did perform CT head without contrast which showed no intracranial hemorrhage, his laboratory workup is benign and EKG shows no concerns he has no major cardiac history or family history known. I stressed strict return criteria for any worsening symptoms and neurologic abnormalities especially palpitations or further episodes of syncope. Findings not consistent with ICH, ACS, electrolyte abnormality. Disposition of Concussion Syndrome, Vasovagal Syncope. Patient verbalized understanding of the plan and return to ED criteria and engaged in shared decision making. Medical Records Medical records reviewed: Yes I reviewed the patient's medical records. Imaging Data Radiologic Study: Attestation: I personally reviewed and interpreted this imaging study as follows: Imaging: CT Scan Radiologist's impression: EXAM: CT HEAD WO CLINICAL HISTORY: fall, headstrike with LOC 0230 this morning. TECHNIQUE: Imaging Protocol: Axial computed tomography images with coronal and sagittal reformatted images were created and reviewed COMPARISON: No exams were available for comparison FINDINGS: Ventricles and Extra axial spaces: Normal in size and morphology for the patient's age. Hemorrhage: None. Cerebral parenchyma: Normal. Midline shift: None. Brainstem/Cerebellum: Normal. Calvarium: Normal. Visualized Paranasal sinuses/Mastoids: Clear. Soft Tissues: Unremarkable. IMPRESSION: No acute intracranial process. Lab Data Lab results reviewed: Yes I reviewed the patient's lab results. Labs: Laboratory Tests Range/Units 07/24/24 18:18 WBC (4.4-10.8) 10^3/uL 12.36 H RBC (4.36-5.78) 10^6/uL 5.10 Hgb (13.5-17.5) g/dL 15.5 Hct (40.0-50.0) % 45.0 MCV (80-95) fL 88 MCH (27.0-33.0) pg 30.4 MCHC (32.0-36.0) % 34.4 RDW (11.8-14.1) % 12.6 Plt Count (130-400) 10^3/uL 311 MPV (8.0-11.0) fL 8.9 Immature Gran % % 0.3 Neutrophils % % 68.0 Lymphocytes % % 22.6 Monocytes % % 6.0 Eosinophils % % 2.8 Basophils % % 0.3 Nucleated RBC % (0.0-0.3) % 0.0 Absolute Neutrophils (1.2-6.7) 10^3/uL 8.40 H Absolute Lymphocytes (1.2-3.4) 10^3/uL 2.79 Absolute Monocytes (0.1-0.8) 10^3/uL 0.74 Absolute Eosinophils (0.0-0.7) 10^3/uL 0.35 Absolute Basophils (0.0-0.2) 10^3/uL 0.04 Sodium (136-145) mmol/L 144 Potassium (3.5-5.1) mmol/L 4.0 Chloride (98-107) mmol/L 106 Carbon Dioxide (21.0-32.0) mmol/L 32.2 H Anion Gap (3-11) mmol/L 5.8 BUN (7-18) mg/dL 11 Creatinine (0.70-1.30) mg/dL 1.0 Est GFR (CKD-EPI 2020) (mL/min/1.73m2) 103.84 Glucose (74-106) mg/dL 88 Calcium (8.5-10.1) mg/dL 9.1 Magnesium (1.8-2.4) mg/dL 2.0 Total Bilirubin (0.2-1.0) mg/dL 0.66 AST (15-37) U/L 20 ALT (16-63) U/L 75 H Alkaline Phosphatase (46-116) U/L 106 Troponin I (<or=76) ng/L 5 Total Protein (6.4-8.2) g/dL 7.5 Albumin (3.4-5.0) g/dL 4.0 Quality:SDOH Health Related Social Needs: No Data to Display PFSH All Active Problems (Updated 07/24/24 @ 19:04 by KOBI Frey) Vasovagal syncope (Acute) Concussion syndrome (Acute) Rotator cuff impingement syndrome of right shoulder (Acute) Medical History No significant past medical history Surgical History No significant past surgical history Social History Smoking/Tobacco Use Status: Current every day Tobacco Type: e-cigarettes Smoking risk assessment performed?: Yes Alcohol Intake: current Alcohol Intake frequency: a few times a month Alcohol type: beer and hard liquor Drug use: Never Substance use type: does not use Housing: house Do you feel safe at home: Yes Do you feel safe in your relationship?: Yes
[2024-07-24 18:24] LABS: Abs Immature Grans 0.04 10^3/uL (0.0-0.06); Absolute Basophil Count 0.04 10^3/uL (0.0-0.2); Absolute Eosinophil Count 0.35 10^3/uL (0.0-0.7); Absolute Lymphocyte Count 2.79 10^3/uL (1.2-3.4); Absolute Monocyte Count 0.74 10^3/uL (0.1-0.8); Basophils % 0.3 %; Eosinophils % 2.8 %; HGB 15.5 g/dL (13.5-17.5); Immature Grans % 0.3 %; Lymphocytes % 22.6 %; MCH 30.4 pg (27.0-33.0); MCHC 34.4 % (32.0-36.0); MCV 88 fL (80-95); MPV 8.9 fL (8.0-11.0); Platelet Count 311 10^3/uL (130-400); RDW 12.6 % (11.8-14.1); RDW-SD 41.2 fL; WBC 12.36 10^3/uL (4.4-10.8)
--- OUTSIDE RECORDS SUMMARY | 2024-07-24 18:38 | XMS_ITS | Encounter Summary ---
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 Pathology & Laboratory Medicine - [address] [address] Outr Resulting Lab, Provider Social History Tobacco [...] 23:56 EDT) Hold Hold 11/22/2023 18:01 EDT [facility] Blood VENOUS BLOOD / Unknown 11/21/2023 23:56 EDT 11/22/2023 16:55 EDT us Provider Outr Resulting Lab LAB INFO SERVICE AND SUPPORT & PHONE RESULT Final Result [facility] [address] [place] [address] * HEPATITIS B SURFACE ANTIBODY (11/21/2023 23:56 EDT) Pathologist [facility] Hep B Surface Ab, Quantitative <3.1 See Note mIU/mL 11/23/2023 8:17 EDT [facility] Comment: Reference Range for Hep B Surface Ab, Quant: Positive: >= 10.0 mIU/mL Negative: ??< 10.0 mIU/mL Patient is presumed to not be immune to infection with Hepatitis B Virus. Hep B Surface Ab, Qualitative Negative See Note 11/23/2023 8:17 EDT [facility] Comment: Reference Range for Hep B Surface Ab, Qual: Unvaccinated: ??Negative Vaccinated: ??Positive Blood VENOUS BLOOD / Unknown 11/21/2023 23:56 EDT 11/22/2023 16:54 EDT us Provider Outr Resulting Lab CHEMISTRY & BLOOD GA S ORDERABLES Final Result Performing Organization Address [facility]/ZIP Co de Phone Number [facility] [address] [place] [phone] * HEPATITIS B SURFACE ANTIGEN (11/21/2023 23:56 EDT) [facility] Hep B Surface Ag Negative Negative 11/23/2023 8:34 EDT [facility] Blood VENOUS BLOOD / Unknown 11/21/2023 23:56 EDT 11/22/2023 16:54 EDT us Provider Outr Resulting Lab CHEMISTRY & BLOOD GA S ORDERABLES Final Result Performing Organization Address City/[facility]/ZIP Co de Phone Number [facility] [address] [place] [address] * HEPATITIS C AB W REFLEX TO HCV RNA BY PCR (11/21/2023 23:56 EDT) [facility] Hep C Antibody Negative Negative 11/23/2023 8:47 EDT [facility] Blood VENOUS BLOOD / Unknown 11/21/2023 23:56 EDT 11/22/2023 16:54 EDT us Provider Outr Resulting Lab CHEMISTRY & BLOOD GA S ORDERABLES Final Result [facility] [address] [place] [address] documented in this encounter Visit Diagnoses Not on filedocumented in this encounter
--- OUTSIDE RECORDS SUMMARY | 2024-07-24 18:38 | XMS_ITS | Referral Summary ---
Author Organization [facility] Address [address] [place] [address] Care Team Providers Care Puller Machine Name Role Phone Unavailable Primary Care Provider [...] C Antibody Negative Negative 11/23/2023 8:47 EDT [facility] Blood VENOUS BLOOD / Unknown 11/21/2023 23:56 EDT 11/22/2023 16:54 EDT us Provider Outr Resulting Lab CHEMISTRY & BLOOD GA S ORDERABLES Final Result [facility] [address] [place] [id number] from Last 3 Months or Most Recently Relevant to Health Maintenance
--- OUTSIDE RECORDS SUMMARY | 2024-07-24 18:38 | XMS_ITS | Clinical Summary ---
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
[2024-07-24 18:41] LABS: ALT 75 U/L (16-63); AST 20 U/L (15-37); Alkaline Phosphatase 106 U/L (46-116); Anion Gap 5.8 mmol/L (3-11); BUN 11 mg/dL (7-18); Bilirubin, Total 0.66 mg/dL (0.2-1.0); CO2 32.2 mmol/L (21.0-32.0); Calcium 9.1 mg/dL (8.5-10.1); Chloride 106 mmol/L (98-107); Estimated GFR 103.84 (mL/min/1.73m2); Glucose 88 mg/dL (74-106); Sodium 144 mmol/L (136-145); Total Protein 7.5 g/dL (6.4-8.2); Troponin I 5 ng/L (<or=76)
== END 2024-07-24 19:14 | disposition home or self-care (01) ==
PROVIDERS: Emergency Provider Physician Assistant
DX: S06.0X9A Concussion with loss of consciousness of unspecified duration, initial encounter (principal); X58.XXXA Exposure to other specified factors, initial encounter
CPT/HCPCS: 36415; 80053; 93005; 99285; 70450; 83735; 84484; 85025; 93010; 99284

== ENCOUNTER 2024-09-02 17:37 | Emergency (ER) | payer SELFPAY ==
--- NOTE | 2024-09-02 17:45 | RT.EKG_ITS ---
APPROVED REPORT Exam: Resting ECG Reason for Exam: sob Patient Location: E HR:122 bpm ECG Measurements Heart Rate 122 AXIS MI 165 P 26 QRSd 80 QRS 0 QT 292 T 6 QTc 416 Conclusion Sinus tachycardia. 122 normal axis no stemi
[2024-09-02 17:46] VITALS: BP 132/75; PULSE 124; RESP 14; TEMP 38.6; O2SAT 96
[2024-09-02 18:11] VITALS: RESP 16
[2024-09-02] MEDS: Ibuprofen 600 MG TAB PO (18:13)
[2024-09-02] MEDS: Cyclobenzaprine 10 MG TAB, 3 TABS/BTL PO (18:53)
[2024-09-02 19:02] VITALS: BP 148/83; PULSE 115; RESP 20; TEMP 36.3; O2SAT 96
--- NOTE | 2024-09-02 21:59 | ED.GENADUL_ITS ---
Discharge Plan Disposition Patient Disposition: Home Condition: Stable Discharge Details Clinical Impression: Influenza B Primary Care Provider: MITA VELIZ ED Provider: Joann Melo Home Meds and New Rx's Prescriptions: New cyclobenzaprine 10 mg tablet 10 mg PO TID PRNQty: 10 0RF Continued albuterol 90 mcg/actuation aerosol 90 mcg inhalation .every 4 hr PRN Rx Instructions: inhaled EVERY 4 HR PRN; Discharge Instructions Instructions: Flu, Adult ED Additional Instructions: Take Motrin per package instructions and Tylenol per package instructions for pain do not return to work until you are fever free for 24 hours and symptomatic improvement in her pain Keep hydrated He may take Flexeril as needed for musculoskeletal pain Please return earlier should you have worsening shortness of breath, chest pain, or should any new concerns arise Stand Alone Forms: Work Release Referrals: MITA VELIZ [Primary Care Provider] - Discharge Data Discharge Date/Time-TO BE ENTERED AT DEPARTURE: 09/02/24 19:02 HPI General Date/Time Provider Initiated Documentation: 09/02/24 18:03 . HPI Narrative: 29-year-old male presents with sudden onset myalgias in bilateral lower extremities and fatigue while at work. No chest pain, shortness of breath, known sick contacts, abdominal pain, stiff neck, or headache. Mild cough since this afternoon. Alert and oriented but appears uncomfortable. No IV drug use. Related Data Home Medications ?Medication ?Instructions ?Recorded ?Confirmed albuterol 90 mcg/actuation aerosol 90 mcg inhalation .every 4 hr PRN 12/16/23 09/02/24 inhaler cyclobenzaprine 10 mg tablet 10 mg PO TID PRN #10 tabs 09/02/24 Previous Rx's ?Medication ?Instructions ?Recorded cyclobenzaprine 10 mg tablet 10 mg PO TID PRN #10 tabs 09/02/24 Allergies Allergy/AdvReac Type Severity Reaction Status Date / Time peanut Allergy Unknown Verified 09/02/24 17:52 General Stated Complaint: Dizzy/Sync ANABELLE: 3 Exam Narrative Exam Narrative: General Appearance: Alert and oriented, appears uncomfortable. Vital signs: Temperature 38.6?C. HEENT: Pupils equal, round, reactive to light and accommodation. Respiratory: Lungs clear to auscultation. Cardiovascular: Sinus tachycardia. Skin: Warm and dry, no rash. Neurological: Neurovascularly intact without meningismus. Other observations: None. Course Vital Signs Vital signs: Vital Signs Temperature 38.6 C H 09/02/24 17:46 Pulse 124 H 09/02/24 17:46 Respiratory Rate 14 09/02/24 17:46 Blood Pressure 132/75 09/02/24 17:46 Pulse Oximetry 96 09/02/24 17:46 Temperature 36.3 C L 09/02/24 19:02 Temperature Source Oral 09/02/24 17:46 Pulse 115 H 09/02/24 19:02 Respiratory Rate 20 09/02/24 19:02 Respiratory Effort Normal, Short of Breath 09/02/24 18:11 Blood Pressure 148/83 H 09/02/24 19:02 Blood Pressure Position Sitting 09/02/24 17:46 Pulse Oximetry 96 09/02/24 19:02 Oxygen Delivery Method Room Air 09/02/24 17:46 Oxygen Flow Rate 0 09/02/24 17:46 Pain Level 9 09/02/24 18:13 Medical Decision Making Influenza B positive. Initial Assessment: 29-year-old male presents with myalgias in bilateral lower extremities, fatigue, and mild cough. No chest pain, shortness of breath, abdominal pain, stiff neck, or headache. Patient is alert and oriented but appears uncomfortable. Neurovascularly intact without meningismus. Pupils equal, round, reactive to light and accommodation. Lungs clear to auscultation. Sinus tachycardia improved. ED Course: - Temperature 38.6?C, treated with Motrin with symptom improvement. - Positive for influenza B. Final Assessment: Patient's symptoms of myalgias, fatigue, and mild cough are consistent with influenza B. Sinus tachycardia improved after treatment with Motrin. Supportive care at home with Motrin and Tylenol recommended. Clinical Impression: - Influenza B Disposition: - Discharge - Follow-Up: Return if new or worsening complaints. Work note supplied. MDM Components Evaluation: - Number of Differential Diagnoses or Management Options: Influenza B - Amount and Complexity of Data Reviewed: Influenza test results - Risk of Complication and Morbidity or Mortality: Low risk with supportive care and monitoring for new or worsening symptoms. Quality:SDOH Health Related Social Needs: No Data to Display PFSH All Active Problems (Updated 09/02/24 @ 18:49 by KOBI Agosto) Influenza B (Acute) Rotator cuff impingement syndrome of right shoulder (Acute) Medical History No significant past medical history Surgical History No significant past surgical history Social History Smoking/Tobacco Use Status: Current every day Tobacco Type: e-cigarettes Smoking risk assessment performed?: Yes Alcohol Intake: current Alcohol Intake frequency: a few times a month Alcohol type: beer and hard liquor Drug use: Never Substance use type: does not use Housing: house Do you feel safe at home: Yes Do you feel safe in your relationship?: Yes
== END 2024-09-02 19:02 | disposition home or self-care (01) ==
PROVIDERS: Emergency Provider Physician Assistant; PCP Nurse Practitioner
DX: J10.1 Influenza due to other identified influenza virus with other respiratory manifestations (principal); F17.290 Nicotine dependence, other tobacco product, uncomplicated
CPT/HCPCS: 87426; 93005; 99284; 93010; 99283